=== PATIENT | female | born 2000 | race Caucasian/White ===

== ENCOUNTER 2020-02-20 00:04 | Emergency (ER) | payer OTHER ==
[2020-02-20] MEDS ORDERED: OXYCODONE-ACETAMINOPHEN 5-325 MG TABLET PO ONE (01:04)
[2020-02-20 01:19] LABS: APPEARANCE,URINE CLEAR; BILIRUBIN,URINE NEGATIVE (NEGATIVE); COLOR,URINE STRAW; GLUCOSE, URINE NEGATIVE (NEGATIVE); KETONES,URINE NEGATIVE (NEGATIVE); PROTEIN,URINE NEGATIVE (NEGATIVE); UROBILINOGEN,URINE NEGATIVE mg/dL (<2.0)
--- NOTE | 2020-02-20 03:02 | RADIOLOGY REPORT (SQ) ---
Lumbar spine x-ray five views on 02/20/2020 at 2:03 AM CLINICAL INDICATION: Low back pain, sciatica COMPARISON: None FINDINGS: Lumbar spine is well aligned. Disc space height is well-maintained. There are no fractures. No bony abnormality is noted. IMPRESSION: No acute abnormality.
[2020-02-20] MEDS ORDERED: PREDNISONE 20 MG TABLET PO ONE (03:12)
[2020-02-20] MEDS ORDERED: KETOROLAC TROMETHAMINE 60 MG/2 ML SDV IM ONE (03:13)
[2020-02-20] MEDS ORDERED: HYDROCODONE/ACETAMINOPHEN 5-325 MG (6 TAB/ER DISP) PO PRN (03:13)
--- NOTE | 2020-02-20 03:17 | ER Document Report ---
ED Neck/Back Problem - General Chief Complaint: Back Pain Stated Complaint: BACK PAIN Time Seen by Provider: 02/20/20 00:47 Primary Care Provider: JAYDEN RIVAS JR, [ACTIVE PROVISIONAL STAFF] - Follow up as needed Notes: CHIEF COMPLAINT: Exacerbation of chronic back pain HPI: 19-year-old female presenting for exacerbation of chronic back pain over the last 2 days. Pain is in the lower lumbar region of the back. No trauma. No incontinence of urine or bowel. Patient with multiyear history of intermittent episodes of low back pain. States she sees chiropractic has been to physical therapy. Had an MRI 2 years ago does not know the results. Patient states that she has been referred into pain management by her PCP who is placed her on tramadol which has not helped in the last 2 days. Patient reports some numbness and tingling down the left gluteal and lateral thigh region ROS: See HPI - all other systems were reviewed and are otherwise negative Constitutional: no fever Eyes: no drainage, no blurred vision ENT: no runny nose, no sore throat Cardiovascular: no chest pain Resp: no SOB, no cough GI: no vomiting, no diarrhea, no abdominal pain : no dysuria Integumentary: no rash Allergy: no hives Musculoskeletal: no extremity pain or swelling, positive back pain Neurological: Positive numbness/tingling MEDICATIONS: I agree with the patient medications as charted by the RN. ALLERGIES: I agree with the allergies as charted by the RN. PAST MEDICAL HISTORY/PAST SURGICAL HISTORY: Reviewed and agree as charted by RN. SOCIAL HISTORY: Reviewed and agree as charted by RN. FAMILY HISTORY: No significant familial comorbid conditions directly related to patient complaint EXAM: Reviewed vital signs as charted by RN. CONSTITUTIONAL: Alert and oriented and responds appropriately to questions. Well-appearing; well-nourished HEAD: Normocephalic; atraumatic EYES: PERRL; Conjunctivae clear, sclerae non-icteric ENT: normal nose; no rhinorrhea; moist mucous membranes; pharynx without lesions noted, no uvula edema or deviation, no tonsillar hypertrophy, phonation normal NECK: Supple without meningismus; non-tender; no cervical lymphadenopathy, no masses CARD: symmetric distal pulses RESP: Normal chest excursion without splinting or tachypnea ABD/GI: Normal bowel sounds; non-distended; soft, non-tender, no rebound, no guarding; no palpable organomegaly or masses. BACK: The back appears normal and is non-tender to palpation, there is no CVA tenderness EXT: Normal ROM in all joints; non-tender to palpation; no cyanosis, no effusions, no edema SKIN: Normal color for age and race; warm; dry; good turgor; no acute lesions noted NEURO: Moves all extremities equally; Motor and sensory function intact. Strength equal 5/5 bilateral lower extremities. Sensation intact and equal bilateral lower extremities. Straight leg raise is negative. No saddle anesthesia on exam. DTRs 2+ intact and equal bilateral lower extremities. PSYCH: The patient's mood and manner are appropriate. Grooming and personal hygiene are appropriate. MDM: 19-year-old female with exacerbation of chronic back issues. Seems to have sciatic symptoms on the left side tonight which are new for the patient. We will place her on a course of prednisone. Will place her on a short course of [place], refer to orthopedics for further evaluation - Related Data Allergies/Adverse Reactions: No Known Allergies Allergy (Verified 02/20/20 00:53) Home Medications: lamictal, zyrtec, adderall, tramadol, Past Medical History - Social History Smoking Status: Current Every Day Smoker Family History: Reviewed & Not Pertinent Physical Exam - Vital signs Vitals: Temp Pulse Resp BP Pulse Ox 98.2 F 106 H 16 124/74 100 02/20/20 00:13 02/20/20 00:13 02/20/20 00:13 02/20/20 00:13 02/20/20 00:13 Course - Vital Signs Vital signs: Temp Pulse Resp BP Pulse Ox 98.2 F 106 H 16 124/74 100 02/20/20 00:13 02/20/20 00:13 02/20/20 00:13 02/20/20 00:13 02/20/20 00:13 Discharge - Discharge Clinical Impression: Acute exacerbation of chronic low back pain Sciatica Qualifiers: Laterality: left Qualified Code(s): M54.32 - Sciatica, left side Condition: Stable Disposition: HOME, SELF-CARE Additional Instructions: 1. Warm heat to the lower back twice daily 2. no heavy lifting for 2-3 days 3. medications as prescribed, no driving on narcotics 4. follow up with orthopedics for further evaluation and treatment as needed for any continuing pain or problems, call for appt. 5. return to the ER for any onset of incontinence of urine, fever > 101 or worsening condition Prescriptions: Prednisone [Deltasone 20 mg Tablet] 2 tab PO DAILY 5 Days #10 tablet Hydrocodone/Acetaminophen [[place] 5-325 mg Tablet] 1 tab PO Q4 PRN #10 tablet PRN Reason: Referrals: JAYDEN RIVAS JR, DO [ACTIVE PROVISIONAL STAFF] - Follow up as needed
[2020-02-20 04:21] VITALS: BP 104/56
== END 2020-02-20 04:21 | disposition home or self-care (01) ==
LOC: ER 00:04
DX: G89.29 Other chronic pain (principal); M54.5 Low back pain; M54.32 Sciatica, left side; F17.200 Nicotine dependence, unspecified, uncomplicated
CPT/HCPCS: 99284; 96372; 81025; 81001; 72110; J1885; J7512